=== PATIENT | male | born 1945 | race Caucasian/White ===

== ENCOUNTER → 2016-04-29 | Outpatient (CLI) | payer BC ==
[~2016-04-29] MED LIST: ASPIRIN 81M81 MG/TA2 PO; MOTRIN 600600 MG/TAB PO; NORCO 325 MG-51 TAB PO
== END ==
LOC: COL.RAD 09:33
DX: M50.321 Other cervical disc degeneration at C4-C5 level (principal); M43.5X2 Other recurrent vertebral dislocation, cervical region

== ENCOUNTER 2021-11-20 12:09 | Outpatient (RCR) | payer BC ==
[~2021-11-20 12:09] MED LIST changes: +BENADRYL50 MG PO; +CEPHALEXIN500 M1 PO; +COREG 6.256.25 MG/TA PO; +CRESTOR5 MG PO; +LIPITOR 40MG TA40 MG PO; +MELATONIN5 M1 SL; +NAPROSYN 2250 MG/TAB PO; +PRILOSEC10 MG PO
== END 2021-11-22 | disposition home or self-care (01) ==
LOC: COL.CR
DX: I21.4 Non-ST elevation (NSTEMI) myocardial infarction (principal); I50.9 Heart failure, unspecified

== ENCOUNTER 2021-12-16 15:28 | Outpatient (RCR) | payer BC | END 2021-12-16 15:31 | disposition home or self-care (01) | LOC: COL.CR 15:28 | DX: I25.2 Old myocardial infarction (principal); I50.9 Heart failure, unspecified ==

== ENCOUNTER → 2021-12-23 | Outpatient (RCR) | payer SELFPAY | LOC: COL.CR | DX: Z29.8 Encounter for other specified prophylactic measures (principal) ==